=== PATIENT | male | born 1995 | race Caucasian/White ===

== ENCOUNTER 2017-12-05 15:21 | Emergency (ER) | payer BC ==
[2017-12-05 15:45] VITALS: BP 146/101
--- NOTE | 2017-12-05 16:14 | UC ---
Ear Complaint HPI - HPI Summary HPI Summary: bilat ear pain after being tx'd for OM on R side w/ amox. for 5 days. Was told he had an ear perf on R side. did not go swimming. flushed both of his ears this AM w/ hydrogen peroxide. - History of Current Complaint Chief Complaint: UCEar Stated Complaint: EAR ACHE Time Seen by Provider: 12/05/17 15:33 Hx Obtained From: Patient Onset/Duration: Gradual Onset Pain Intensity: 5 Pain Scale Used: 0-10 Numeric - Allergies/Home Medications Allergies/Adverse Reactions: Allergies Allergy/AdvReac Type Severity Reaction Status Date / Time cefaclor [From Ceclor] Allergy Severe throat Verified 12/05/17 15:48 swelling rofecoxib [From Vioxx] Allergy throat Verified 12/05/17 15:48 swelling Home Medications: Home Medications Escitalopram Oxalate [Lexapro 20 mg] 1 tab PO DAILY 12/05/17 [History Confirmed 12/05/17] Ibuprofen TAB* [Advil TAB*] 600 mg PO Q6HR 12/05/17 [History Confirmed 12/05/17] PMH/Surg Hx/FS Hx/Imm Hx Cardiovascular History: Other - elevated bp Other Cardiovascular History: elevated bp - Surgical History Surgical History: Yes Surgery Procedure, Year, and Place: right ulna replaced. hernia repair. retainer removed from stomach - Family History Known Family History: Positive: Cardiac Disease, Hypertension, Diabetes - Social History Alcohol Use: Weekly Alcohol Amount: 1 beer Substance Use Type: None Smoking Status (MU): Never Smoked Tobacco Review of Systems Constitutional: Negative Skin: Negative Eyes: Negative ENT: Ear Ache, Other - bilat ear discharge Respiratory: Negative Cardiovascular: Negative All Other Systems Reviewed And Are Negative: Yes Physical Exam Triage Information Reviewed: Yes Appearance: Well-Appearing, No Pain Distress, Obese Vital Signs: Initial Vital Signs Temp 99 F 12/05/17 15:38 Pulse 93 12/05/17 15:38 Resp 15 12/05/17 15:38 BP 146/101 12/05/17 15:38 Pulse Ox 99 12/05/17 15:38 Vital Signs Reviewed: Yes Eyes: Positive: Conjunctiva Clear ENT: Positive: Other - TM's difficult to visualize in both ears given degree of inflammation in both canals. pain upon insertion of otoscope bilat. erythematous canals.. Negative: Nasal congestion, Nasal drainage Respiratory Exam: Normal Cardiovascular Exam: Normal Ear Complaint Course/Dx - Course Course Of Treatment: bilat ear pain after recenty being tx'd for OM R side w/ amox. new onset L ear pain developed and upon examination has bialt Otitis externa. mira antibx rx'd. should return to pcp to re-evluate TMs. - Differential Dx/Diagnosis Differential Diagnosis/HQI/PQRI: Barotrauma, Otitis Externa, Otitis Media, Trauma Provider Diagnoses: bilateral otitis externa. Discharge - Sign-Out/Discharge Documenting (check all that apply): Patient Departure All imaging exams completed and their final reports reviewed: No Studies - Discharge Plan Condition: Good Disposition: HOME Prescriptions: Ciproflox/Dexameth OTIC.SUSP* [Ciprodex OTIC.SUSP*] 1 drop OTIC BID 7 Days #1 btl Patient Education Materials: Otitis Externa (ED) Referrals: No Primary Care Phys,NOPCP [Primary Care Provider] - Additional Instructions: please follow up with pcp if no improvement or worsening symptoms. follow up with pcp regarding your blood pressure. - Billing Disposition and Condition Condition: GOOD Disposition: Home
== END 2017-12-05 16:33 | disposition home or self-care (01) ==
LOC: UCEAST 15:21
DX: H60.93 Unspecified otitis externa, bilateral (principal); Z88.1 Allergy status to other antibiotic agents; Z88.8 Allergy status to other drugs, medicaments and biological substances
CPT/HCPCS: 99212; G0463